=== PATIENT | female | born 1980 | race Caucasian/White ===

== ENCOUNTER → 2018-03-15 14:48 | Outpatient (CLI) | payer BC, SELFPAY ==
[2018-03-20 09:19] LABS: HPV Reflexed? NOT INDICATED
== END ==
PROVIDERS: Visit Provider Obstetrics & Gynecology
DX: Z12.4 Encounter for screening for malignant neoplasm of cervix (principal)
CPT/HCPCS: 88175; G0145

== ENCOUNTER 2020-10-22 11:21 | Emergency (ER) | payer OTHER, SELFPAY ==
[2020-10-22 11:23] VITALS: BP 163/93; PULSE 103; RESP 15; TEMP 36.2; O2SAT 100; BMI 35.4
[2020-10-22 11:35] LABS: Bedside Glucose 96 mg/dL (70-110)
--- NOTE | 2020-10-22 11:47 | EKG12_ITS ---
Test Reason : NEURO S/SX Blood Pressure : / mmHG Vent. Rate : 086 BPM Atrial Rate : 086 BPM P-R Int : 176 ms QRS Dur : 102 ms QT Int : 362 ms P-R-T Axes : 045 -11 026 degrees QTc Int : 433 ms Normal sinus rhythm Poor R wave progression Confirmed by SE LY, RODERICK ([id number]), editor department KLARISSA PATEL ([id number]) on 10/26/2020 10:56:55 AM Referred By: JANENE/ATIYA Confirmed By:RODERICK SAEZ MD
--- NOTE | 2020-10-22 11:47 | CT_ITS ---
STUDY: CTA HEAD AND NECK WITH CONTRAST REASON FOR EXAM: Female, 40 years old. Dizziness, left facial droop RADIATION DOSAGE (If Supplied By Facility): CTDIvol = ( 25.83 ) mGy, DLP = ( 1516.01 ) mGycm TECHNIQUE: CT angiography was performed with a multi-detector CT scanner. Data acquisition was obtained from the skull base through the vertex following intravenous administration of IV 100mL Isovue-370. MIP images were reconstructed from the axial data set. Post-processing of the angiographic images was performed, with multiplanar reformation and 3D reconstruction. Individualized dose optimization techniques were used for this CT. COMPARISON: No relevant priors. FINDINGS: Normal bilateral petrous carotid arteries. Normal right cavernous carotid artery with a normal supraclinoid bifurcation. Normal left cavernous carotid artery with a normal supraclinoid bifurcation. Normal right A1 segments of the anterior cerebral artery. Normal left A1 segments of the anterior cerebral artery. Normal intact anterior communicating artery (ACOM). Normal bilateral A2 segments of the anterior cerebral arteries. Normal right M1 and M2 segments of the middle cerebral arteries, with a normal M1 bifurcation. Normal left M1 and M2 segments of the middle cerebral arteries, with a normal M1 bifurcation. Normal right posterior communicating artery (PCOM). Normal left posterior communicating artery (PCOM). Normal bilateral vertebral arteries. Normal basilar artery with a normal basilar bifurcation. The visualized bilateral superior cerebellar (SCA) arteries are normal. Normal bilateral P1, P2 and visualized P3 segments of the posterior cerebral arteries. There is no demonstrated aneurysm of the [place] of [place]. There is no demonstrated abnormality of the visualized brain. Prominence of the cisterna magna. This is a normal variant. 34.1 mm hypodense nodule in the anterior aspect of the lower pole of the right lobe of the thyroid. AORTIC ARCH: Normal visualized aortic arch. Normal origins of the brachiocephalic, left common carotid, and left subclavian arteries. RIGHT CAROTID ARTERIES: Normal right common carotid artery (CCA). Normal right common carotid bulb. Normal origin of the right internal carotid (ICA) artery without a hemodynamically significant stenosis. Normal visualized cervical portion of the right internal carotid artery. Normal origin of the right external carotid artery (ECA). LEFT CAROTID ARTERIES: Normal left common carotid artery (CCA). Normal left common carotid bulb. Normal origin of the left internal carotid (ICA) artery without a hemodynamically significant stenosis. Normal visualized cervical portion of the left internal carotid artery. Normal origin of the left external carotid artery (ECA). VERTEBRAL ARTERIES: There is enhancement within the bilateral vertebral arteries with a small right vertebral artery, and a dominant left vertebral artery. CT/CTA Head AND Neck W/ Contrast IMPRESSION: Normal CTA Head and neck with contrast. Electronically Signed: Garrett Diaz MD at 12:59 EDT , Service support ,
--- NOTE | 2020-10-22 11:48 | EDS_ITS ---
HPI History of Present Illness Chief Complaint: Neuro S/Sx Detail of Chief Complaint: Dizziness and left facial droop Informant: patient Narrative Narrative: Patient states that she started having some dizzy spells about a year ago and has had intermittent symptoms especially with getting out of the car or standing up quickly. Often times she will hear a whooshing sound in her ears and feel like she is in a pass out. She has not actually had a syncopal episode. Patient 2 months ago started having intermittent spells where she will feel a pulling to the left side of her face and it look like her face is drooping and then she will have some numbness to the left side of her mouth associated with it. Intermittently she seen some floaters from the right side of her eye. Patient denies headaches or history of migraines. She denies chest pain or shortness of breath. She denies recent illness. Patient was at primary care physician's office today and she was noted to have a left-sided facial droop while in the department and so was referred to the emergency department for further work-up and evaluation. Prior similar symptoms: Yes PFSH PFSH Home Medications NK 10/22/20 [History Last Taken Unknown] Allergy/AdvReac Type Severity Reaction Status Date / Time Sulfa (Sulfonamide AdvReac Hives Verified 06/04/15 14:44 Antibiotics) Surgical History (Updated 10/22/20 @ 11:24 by Sherry Arellano) History of cholecystectomy Social History Smoking Status: Never smoker [facility] ED Constitutional Constitutional ED: Reports systems reviewed and no addt'l complaints, except as documented; Denies body ache(s), change in weight or chills Eyes Eyes: Reports other Details: Intermittently has floaters in the right eye. ; Denies acute decrease in peripheral vision, change in vision, double vision or loss of vision ENT ENT ED: Reports none and other Details: Intermittent transient left-sided facial droop ; Denies ear pain, lip swelling, loss taste/smell, neck pain, otalgia or sore throat Cardiovascular Cardiovascular: Reports none; Denies abdominal pain, chest pain with activity, leg edema, lightheadedness, palpitations, rapid heart rate or syncope Respiratory/Chest Respiratory/Chest: Reports none; Denies change in mental status, dry cough, dyspnea, hemoptysis, shortness of breath at rest or shortness of breath with exertion Gastrointestinal Gastrointestinal: Reports none; Denies abdominal pain, change in stool character, diarrhea, hematemesis, hematochezia, melena, rectal bleeding or vomiting Genitourinary Genitourinary ED: Reports none; Denies abdominal discomfort, anuria, dysuria, genital pain or polyuria Musculoskeletal Musculoskeletal: Reports none; Denies arthralgias, back pain, difficulty walking, extremity pain, muscle weakness or myalgias Integumentary Reports none; Denies abscess or rash Neurologic Neurologic: Reports none; Denies abnormal gait, confusion, focal weakness, frequent falls, headache(s), loss of vision, numbness, paresthesias, radicular pain, vertigo or weakness Psychiatric Psychiatric: Reports systems reviewed and no addt'l complaints, except as documented and none; Denies behavioral changes, confusion, difficulty concentrating, hallucinations, suicidal ideation, tactile hallucinations or visual hallucinations Endocrine Endocrinology: Denies none, cold intolerance, excessive sweating, fatigue or heat intolerance Hematologic/Lymphatic Hematologic/Lymphatic: Reports none; Denies anemia, easy bleeding or easy br uising Allergic/Immunologic Allergic/Immunologic ED: Denies as per HPI, none, lip swelling, mouth swelling, throat swelling, tongue swelling or hives EXAM Physical Exam Const Vital Signs: 10/22/20 11:23 10/22/20 13:02 10/22/20 13:30 Temperature 97.2 F L Temperature Source Temporal Pulse Rate 103 H 72 Pulse Rate [Lying] 67 Pulse Rate [Sitting] 100 Pulse Rate [Standing] 93 Respiratory Rate 15 16 Blood Pressure 163/93 H Blood Pressure [Lying] 124/81 H Blood Pressure [Sitting] 147/90 H Blood Pressure [Standing] 140/83 H Blood Pressure Mean 116 Blood Pressure Mean [Lying] 95 Blood Pressure Mean [Sitting] 109 Blood Pressure Mean [Standing] 102 Pulse Ox 100 100 Oxygen Delivery Method Room Air Room Air Positive well nourished and well developed General Appearance ED: well developed and NAD HEENT Reports TM's clear and moist mucous membranes normocephalic and atraumatic; Negative for trauma or tenderness Tympanic Membrane ED: Yes TM's clear Eyes PERRL and EOMs intact bilaterally General Eye ED: Negative for pale conjunctiva or scleral icterus Neck no lymphadenopathy, supple and no JVD General: Negative for tenderness Chest Wall inspection of chest normal and palpation of chest normal Chest: Negative for tenderness Resp normal respiratory effort and clear to auscultation bilaterally Effort and Inspection: Negative for respiratory distress or pain with movement Auscultation: Negative for rhonchi, wheezes or diminished lung sounds Cardio regular rate, regular rhythm, S1 normal heart sound, S2 normal heart sound and no murmurs Peripheral Pulses: pulses 2+ throughout GI normal to inspection, nondistended, normoactive bowel sounds, soft to palpation, non-tender, non-distended and no masses Back/Spine no CVA tenderness and no thoracic nor lumbar tenderness Extremity normal to inspection General Extremety ED: Negative for edema General Extremity: Negative for edema Neuro oriented x3, CN's II-XII intact bilaterally, no sensory deficits noted and gait normal Neuro Narrative: No facial droop noted currently. Finger-nose and heel felix testing within normal limits, negative Romberg, negative for drift, fundi be nign. Sensorium / Orientation: awake, alert, oriented to person, oriented to place and oriented to time Motor Exam: strength 5/5 throughout and strength abnormal Psych mental status grossly normal Skin no rashes or lesions noted and no wounds MDM MDM MDM Narrative Medical decision making narrative: Discussed results with patient. At this point etiology of her symptoms is unclear. The focal left-sided facial droop associated with position changes. I feel she will need further evaluation as an outpatient including MRI of her brain and possible cardiology follow-up as chery winston. Her orthostatic vital signs were unremarkable here. I discussed results also with patient's primary care physician who is in agreement. I will refer patient to local neurology for follow-up. At this point I do not feel patient is having a stroke. It is possible she may be having atypical migraine phenomenon. Lab Data Attestation: I reviewed the patient's lab results. Labs: Laboratory Results - last 24 hr 10/22/20 10/22/20 10/22/20 11:30 11:30 11:32 WBC 10.0 RBC 5.19 Hgb 14.8 Hct 45.2 MCV 87.1 MCH 28.5 MCHC 32.7 RDW Std Deviation 40.1 RDW Coeff of Krupa 12.8 Plt Count 349 MPV 10.1 Immature Gran % (Auto) 0.300 Neut % (Auto) 59.0 Lymph % (Auto) 32.4 Catron % (Auto) 5.6 Eos % (Auto) 2.2 Baso % (Auto) 0.5 Absolute Neuts (auto) 5.9 Absolute Lymphs (auto) 3.25 Nucleated RBC % 0 Sodium 139 Potassium 3.7 Chloride 107 Carbon Dioxide 25.0 Anion Gap 7 BUN 18 Creatinine 1.04 H Estim Creat Clear Calc 72.54 Est GFR (MDRD) Af Amer 75 Est GFR (MDRD) Non-Af 62 BUN/Creatinine Ratio 17.3 Glucose 100 Calcium 9.1 Troponin I < 0.015 POC Glucose 96 Radiography Diagnostic Testing: Radiology Impression Head/Neck CTA 10/22/20 11:47 IMPRESSION: Normal CTA Head and neck with contrast. Electronically Signed: Garrett Diaz MD at 12:59 EDT , Service support , Discharge Plan Triage Chief Complaint: Neuro S/Sx ED Provider: Amado Humphreys Dx/Rx/DC Orders Clinical Impression: Dizziness of unknown etiology, Facial droop Instructions: ED Dizziness, Uncertain Cause Prescriptions: No Action NK RF: 0 Primary Care Provider: Palmira Shultz Referrals: Palmira Shultz DO [Primary Care Provider] - Lam Campos MD [STAFF PHYSICIAN] - 3-5 Days Activity Restrictions/Additional Instructions: Follow-up with Dr. Lam Garcia Disposition Disposition: Home, self care
[2020-10-22] MEDS: 0.9% Normal Saline 1,000 ML 1000 ML IV (12:13)
[2020-10-22 12:15] LABS: Absolute Lymphocyte Count 3.25 X10^3/uL (0.83-4.51); Absolute Neutrophil Count 5.9 X10^3/uL (2.0-7.7); Basophil# 0.05 X10^3/uL; Basophil% 0.5 % (0-1); Eosinophil# 0.22 X10^3/uL; Eosinophils% 2.2 % (0-5); Hematocrit 45.2 % (37-47); Hemoglobin 14.8 g/dL (12.0-15.0); Lymphocyte # 3.25 X10^3/ul (0.83-4.51); Lymphocyte % 32.4 % (19-41); Mean Corp Hgb Conc 32.7 g/dL (32-36); Mean Corpuscular Hgb 28.5 pg (27.0-32.0); Mean Corpuscular Volume 87.1 fL (81-99); Mean Platelet Vol. 10.1 fl (6.2-12.0); Monocyte# 0.56 X10^3/uL; Monocyte% 5.6 % (0-10); NRBC Flagged by Analyzer 0 % (0-5); Neutrophil # 5.91 X10^3/uL (2.7-7.7); Platelet Count 349 K/mm3 (150-450); RBC Distribution Width CV 12.8 % (11.6-14.6); RBC Distribution Width SD 40.1 fl (35.1-43.9); Red Blood Count 5.19 M/mm3 (4.2-5.4)
[2020-10-22 12:28] LABS: Anion Gap 7 (5-15); BUN 18 mg/dL (7-18); BUN/Creat Ratio 17.3 RATIO (10-20); Calcium,Total 9.1 mg/dL (8.5-10.1); Chloride 107 mmol/L (98-107); Creatinine, Serum 1.04 mg/dL (0.55-1.02); EST Glomerular Filtration Rate 62 mL/min (>60); Est Glom Filt Rate - Afr Amer 75 mL/min (>60); Estimated Creatinine Clearance 72.54 ml/min; Glucose 100 mg/dL (74-106); Potassium 3.7 mmol/L (3.5-5.1); Sodium Level 139 mmol/L (136-145)
[2020-10-22 13:02] VITALS: PULSE 72; RESP 16; O2SAT 100
[2020-10-22 13:30] VITALS: BP 124/81; BP 140/83; BP 147/90; PULSE 100; PULSE 67; PULSE 93
[2020-10-22 13:58] VITALS: BP 140/83; PULSE 74; RESP 16; O2SAT 99
== END 2020-10-22 14:07 | disposition home or self-care (01) ==
PROVIDERS: Emergency Provider Emergency Medicine; PCP Internal Medicine
DX: R42 Dizziness and giddiness (principal); R29.810 Facial weakness
CPT/HCPCS: 70496; 70498; 80048; 82962; 84484; 85025; 93005; 96360; 96361; 99284; J7030; Q9967; A4216

== ENCOUNTER → 2020-12-24 10:39 | Outpatient (CLI) | payer OTHER, SELFPAY ==
[2020-12-20 08:47] VITALS: BMI 34.5
--- NOTE | 2020-12-24 10:53 | MRI_ITS ---
STUDY: MRI BRAIN WITHOUT CONTRAST REASON FOR EXAM: Female, 40 years old. FACIAL PARASTHESIS, dizziness upon standing TECHNIQUE: Standardized multiplanar fat and water weighted pulse sequences were obtained. COMPARISON: None. FINDINGS: Normal size of the ventricles and extra-axial spaces for the patient''s age. Normal white matter tracts of the supratentorial brain. There is no evidence for recent intracranial ischemia or other cause of cytotoxic edema on diffusion weighted imaging (DWI). Normal T2* images of the brain without demonstrated susceptibility artifact. There is no demonstrated hemosiderin stain. Normal bilateral basal ganglia. Normal thalami. There is no extra-axial fluid accumulation. Normal flow voids within the major intracranial circulation suggesting patency by spin echo criteria. Normal sella turcica, pituitary gland, infundibular stalk, optic chiasm and hypothalamus. Normal tectal plate and pineal gland. Normal midbrain, will and medulla. 12 mm of cerebellar tonsillar ectopia consistent with a Chiari I malformation. No platybasia, cervicomedullary kinking, or syrinx. Normal basal cisterns. Normal bilateral temporal bones. Normal bilateral internal auditory canals. No demonstrated orbital abnormality, within the constraints of a routine brain study. Some mucosal thickening of the floor the maxillary sinuses consistent with chronic sinusitis. Normal calvarium and skull base. Normal visualized soft tissue structures. Normal visualized upper cervical spine. MRI/Brain without Contrast IMPRESSION: Chiari I malformation. Electronically Signed: Leonardo Agrawal MD at 17:23 EDT Tel , Service support ,
[2020-12-24 11:00] LABS: T4 Free Direct 0.83 ng/dL (0.76-1.46); Thyroid Stim Hormone (TSH) 1.17 uIU/mL (0.358-3.74)
--- NOTE | 2020-12-24 11:54 | US_ITS ---
STUDY: THYROID ULTRASOUND REASON FOR EXAM: Female, 40 years old. Thyroid nodule TECHNIQUE: Ultrasound evaluation of the thyroid was performed with real-time and static perez-scale imaging. COMPARISON: CT 10/22/2020 FINDINGS: RIGHT LOBE: The right lobe of the thyroid gland measures 5.3 x 1.9 x 2.5 cm. There is a homogeneous echotexture. Nodule 1:6 x 6 x 6 mm cystic anechoic wider than tall smoothly marginated nodule with no echogenic foci (TR 1) in the inferior right lobe consistent with a colloid cyst corresponding to the nodule seen on CT. LEFT LOBE: The left lobe of the thyroid gland measures 4.7 x 1.8 x 1.6 cm. There is a homogeneous echotexture. Nodule 2:4 x 2 x 3 mm cystic anechoic wider than tall smoothly marginated nodule with no echogenic foci (TR 1) in the lateral left lobe consistent with a colloid cyst. ISTHMUS: The isthmus measures 4 mm thick. . The regional lymph nodes are normal. US/Thyroid IMPRESSION: Normal ultrasound examination of the thyroid. 6 mm colloid cyst in the inferior right lobe corresponding to the nodule seen on CT. Electronically Signed: Leonardo Agrawal MD at 17:51 EDT Tel , Service support ,
== END ==
PROVIDERS: Psychiatry & Neurology Neurology; PCP Internal Medicine; Referring Provider Internal Medicine; Visit Provider Internal Medicine
DX: R20.2 Paresthesia of skin (principal); E04.1 Nontoxic single thyroid nodule
CPT/HCPCS: 36415; 70551; 76536; 84439; 84443

== ENCOUNTER → 2021-04-22 09:48 | Outpatient (CLI) | payer OTHER, SELFPAY ==
--- NOTE | 2021-04-22 09:50 | BI_ITS ---
MAMMOGRAPHY - BILATERAL SCREENING REASON FOR EXAM: Female, 41 years old. Routine annual screening examination. PERTINENT HISTORY: Non-contributory. TECHNIQUE: Digital bilateral breast rodrigo (3D mammographic acquisition) in the CC and MLO projections. 2-D mediolateral oblique (MLO) and craniocaudad (CC) views of both breasts were obtained. CAD: Full Field Digital Mammography with Computer Added Detection was performed. COMPARISON: None. Baseline examination. FINDINGS: Breast Composition: The breasts are heterogeneously dense, which may obscure small masses. There are no dominant masses or suspicious calcifications. Benign-appearing mild axillary lymph nodes. No other significant abnormalities are identified. BI/SCRN MAMM (CAD)W/RODRIGO BILAT IMPRESSION: Negative screening mammogram. Yearly followup mammogram recommended. (A) ASSESSMENT CATEGORY: BIRADS Category 2: Benign. A letter regarding these results will be sent to the patient by the facility within 30 days. Approximately 10% of breast cancers are not detected by mammography. A normal mammogram should not delay biopsy of a clinically suspicious abnormality. [id number] Electronically Signed: Garrett Diaz MD at 10:52 EDT , Service support ,
== END ==
PROVIDERS: PCP Internal Medicine; Referring Provider Student in an Organized Health Care Education/Training Program; Visit Provider Student in an Organized Health Care Education/Training Program
DX: Z12.31 Encounter for screening mammogram for malignant neoplasm of breast (principal)
CPT/HCPCS: 77063; 77067

== ENCOUNTER 2021-05-02 12:48 | Outpatient (CLI) | payer OTHER, SELFPAY ==
[2021-05-02 13:05] VITALS: BP 148/96; PULSE 84; RESP 16; TEMP 36.8; O2SAT 100; BMI 32.5
[2021-05-02] MEDS: 0.9% Saline Lock 10 ML Syringe IV (13:15)
[2021-05-02 14:10] VITALS: BP 121/84; PULSE 71; RESP 16; TEMP 36.4; O2SAT 100
[2021-05-02 15:06] VITALS: BP 126/78; PULSE 70; RESP 16; TEMP 36.6; O2SAT 100
== END 2021-05-02 15:13 | disposition home or self-care (01) ==
LOC: MS3OUT 12:48 → MS3 12:49
PROVIDERS: PCP Internal Medicine; Visit Provider Nurse Practitioner Adult Health
DX: U07.1 COVID-19 (principal)
CPT/HCPCS: J7050; M0245; Q0245; A4216

== ENCOUNTER → 2021-10-28 | Outpatient (CLI) | payer OTHER, SELFPAY ==
--- NOTE | 2021-10-28 11:02 | MRI_ITS ---
EXAM: MR HEAD WITHOUT AND WITH INTRAVENOUS CONTRAST CLINICAL INDICATION: Bilateral papilledema. Follow-up CHIARI I malformation. TECHNIQUE: Multiplanar and multisequence MR images of the brain were obtained without and with intravenous contrast. This report was created using [employer] technology. CONTRAST: IV 17ml Dotarem COMPARISON: MRI brain without contrast 12/24/2020. FINDINGS: BRAIN AND EXTRA-AXIAL SPACES: Midline herniation of the inferior cerebellar tonsils CHIARI I anomaly causing foramen magnum stenosis. No focal signal abnormalities throughout the brain parenchyma in all of the pulse sequences. Normal ventricles and cisterns. No abnormal enhancing lesions intraaxially and extra-axially. No abnormal contrast enhancement of the optic nerves, optic nerve sheaths, optic chiasm, optic tracts and the rest of the intracranial pathway. Small round magnetic susceptibility focus near the surface of the lateral aspect of the inferior semilunar lobule of the left cerebellar hemisphere has central T2 hyperintensity. 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 No intra- or extra-axial hemorrhage. No evidence of acute infarct. There is preservation of the perez/white matter interface. No hydrocephalus. SELLA: Unremarkable. Normal sella turcica, pituitary gland, infundibular stalk, optic chiasm and hypothalamus. AUDITORY SYSTEM: Unremarkable. The internal auditory canals are patent. BONES/JOINTS: No associated syrinx of the included cervical spinal cord from C1 down to C5. No discrete lytic or blastic abnormalities. SINUSES: Unremarkable as visualized. Clear. MASTOID AIR CELLS: Unremarkable as visualized. Clear. ORBITS: No abnormal contrast enhancement of the orbital globes. VASCULATURE: Unremarkable as visualized. Normal flow voids in the major intracranial circulation. MRI/Brain W/WO Contrast IMPRESSION: 1. Normal MRI scan of the orbits, optic nerves, optic nerve sheaths, optic chiasm, optic tracts and the rest of the intracranial pathway. 2. 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 This is unchanged. 3. CHIARI I anomaly with peglike configuration of the midline cerebellar tonsillar herniation causing foramen magnum stenosis. This is unchanged. 4. No abnormal enhancing lesions intraaxially and extra-axially. 5. No significant interval change when compared to 12/24/2020. Electronically Signed: Ti Goodwin MD at 13:06 EDT ,
== END | disposition home or self-care (01) ==
LOC: MRI 11:02
PROVIDERS: PCP Internal Medicine; Visit Provider Nurse Practitioner Family
DX: H47.10 Unspecified papilledema (principal); G93.5 Compression of brain; G51.32 Clonic hemifacial spasm, left
CPT/HCPCS: 70553; A9575

== ENCOUNTER 2022-02-21 14:02 | Outpatient (CLI) | payer OTHER, SELFPAY ==
[2022-03-02 16:29] LABS: HPV APTIMA, High Risk Negative (Negative)
== END 2022-02-21 23:59 | disposition home or self-care (01) ==
LOC: LABSPEC 14:18
PROVIDERS: PCP Internal Medicine; Visit Provider Student in an Organized Health Care Education/Training Program
DX: Z01.419 Encounter for gynecological examination (general) (routine) without abnormal findings (principal)
CPT/HCPCS: 87624; 88175; G0145

== ENCOUNTER → 2022-05-19 | Outpatient (CLI) | payer OTHER, SELFPAY ==
--- NOTE | 2022-05-19 | CYSPIN_PTH ---
PATIENT: NICK HERNANDEZ LOC: [facility] U#:[id number] AGE/SX: 42/F ROOM: RE05/19/[address]: CARYN Hernandez : 1980 BED: DIS: 05/19/2022 SPEC #: [id number] RECD: 05/19/22 13:23 STATUS: UVALDO REMaryanne #: [id number] NICOLETTE: 05/19/22 00:[address]: Isatu Martinez NP DEPT: CYTOLOGY RECD BY: Denzel Reza ENTERED: 05/19/22 13:23 SP TYPE: CYSPIN FL OTHR DR: Dr. Palmira Shultz DO Tissues: Cerebrospinal Fluid Procedures: Pap Stain (control) Special Stain Group II Cytospin Fluid Comments: @ Specimen number changed from [id number] to [id number] @ on 05/19/22 at 1327 by SHEILA. HEADER OPERATION: Lumbar puncture PRE-OP DIAGNOSIS: Papilledema, concern for increased intracranial pressure TISSUE SUBMITTED: Cerebrospinal fluid for cytology DIAGNOSIS CYTOLOGY Cerebrospinal fluid for cytology (cytospin): Negative for malignant cells. See comment. ADELA:marychuy 05/22/2022 COMMENT The specimen is bloody. Clinical correlation and appropriate follow up are necessary. CYTOLOGY STUDY Slides are reviewed. CYTOLOGY GROSS Received is 1 ml of light pink cloudy fluid labeled with the patient's name and and designated per the requisition as CSF. Submitted for cytology preparation. / [email or web address] 05/19/2022 TC:5 CPT: 29763
--- NOTE | 2022-05-19 09:34 | RAD_ITS ---
PROCEDURE: Fluoroscopic guided Lumbar Puncture. INDICATION: Female, 42 years old. Unspecified papilledema. Concern for increased intracranial pressure. PHYSICIAN: Praful Padilla D.O. MEDICATIONS: 1% lidocaine administered subcutaneously for local anesthesia. ACCESS SITE: Lower posterior back. NEEDLE: 22-gauge spinal needle. SPECIMEN: Approximately 12 mL of CSF fluid. FLUOROSCOPY TIME (if supplied): 12 seconds. COMPLICATIONS: None immediate. TECHNIQUE: The risks, benefits, and alternatives to the procedure were explained to the patient. The specific risks of bleeding, infection, and neurovascular injury were detailed and accepted. Witnessed informed consent was obtained. The patient was placed on the fluoroscopic table in the prone position. The level for needle entry was determined and marked. The overlying skin was cleaned and prepped in the usual sterile fashion. Approximately 5 cc of 1% lidocaine was administered subcutaneously for local anesthesia. Under fluoroscopic guidance a 22-gauge spinal needle was advanced. The thecal sac was entered at the L4-L5 vertebral level. The inner stylet was removed. There was spontaneous flow of clear CSF fluid. Opening pressure was obtained measuring 12 cm H2O. The patient was placed in a reversed Trendelenburg position. Approximately 12 mL of cerebrospinal fluid was collected using gravity. The specimen was collected and submitted to the laboratory for further evaluation. The needle was withdrawn. Hemostasis was achieved and a sterile dressing placed. The patient tolerated the procedure well without any immediate complications. The patient was returned to the floor in stable condition. RAD/Dx Lumbar Puncture w/IMG Guide IMPRESSION: Successful fluoroscopic-guided lumbar puncture with opening pressure of 12 cm H2O. Laboratory results are pending. Electronically Signed: Praful Padilla, at 13:03 EST ,
[2022-05-19 09:43] VITALS: BP 147/75; PULSE 92; RESP 16; TEMP 36.6; O2SAT 99; BMI 32.5
[2022-05-19] MEDS: Lidocaine 2% (5ml sdv) 5 ML VIAL.MPF INFILT (10:30)
[2022-05-19 10:49] VITALS: BP 135/81; PULSE 69; RESP 16; O2SAT 98
[2022-05-19 11:00] VITALS: BP 127/80; PULSE 69; RESP 16; O2SAT 97
[2022-05-19 11:15] VITALS: BP 128/81; PULSE 76; RESP 14; O2SAT 98
[2022-05-19 11:15] LABS: Cytology, Body Fluid / CSF SEE PATHOLOGY REPORT
[2022-05-19 11:30] VITALS: BP 126/79; PULSE 78; RESP 14; O2SAT 98
[2022-05-19 11:45] VITALS: BP 144/92; PULSE 91; RESP 16; O2SAT 99
[2022-05-19 12:08] LABS: Glucose Spinal Fluid 56 mg/dL (40-75)
[2022-05-19 13:38] LABS: Auto B Fluid Analyzer BKGD Ct COUNTS W/IN LIMITS (W/IN LIMITS); Tested Tube # 4
[2022-05-19 13:39] LABS: Appearance CSF (character) CLEAR (Clear); CSF Color COLORLESS (Colorless); Lymphocytes,CSF 1 % (40 - 80); RBC Count, Spinal Fluid 105 /mm-3 (None seen); White Count, CSF 3 /mm-3 (0 - 5)
[2022-05-19 13:40] LABS: Body Fluid QC Type(s) BF1Q; Neutrophils,CSF 1 % (0 - 6)
[2022-05-22 12:54] LABS: Pathologist Review Reviewed
== END | disposition home or self-care (01) ==
PROVIDERS: PCP Internal Medicine; Referring Provider Nurse Practitioner Family; Visit Provider Nurse Practitioner Family
DX: H47.10 Unspecified papilledema (principal)
CPT/HCPCS: 62328; 82040; 82042; 82784; 82945; 84157; 87070; 87205; 88108; 88313; 89050; 89051

== ENCOUNTER → 2022-05-25 | Outpatient (CLI) | payer OTHER, SELFPAY ==
--- NOTE | 2022-05-25 08:29 | BI_ITS ---
MAMMOGRAPHY - BILATERAL SCREENING REASON FOR EXAM: Female, 42 years old. Routine annual screening examination. PERTINENT HISTORY: Non-contributory. TECHNIQUE: Digital bilateral breast rodrigo (3D mammographic acquisition) in the CC and MLO projections. 2-D mediolateral oblique (MLO) and craniocaudad (CC) views of both breasts were obtained. CAD: Full Field Digital Mammography with Computer Added Detection was performed. COMPARISON: Comparison is made with prior study dated 04/22/2021. FINDINGS: Breast Composition: The breasts are heterogeneously dense, which may obscure small masses. There are no dominant masses or suspicious calcifications. Stable small benign-appearing bilateral axillary lymph nodes. No other significant abnormalities are identified. There has been no significant change since the prior study. BI/SCRN MAMM (CAD)W/RODRIGO BILAT IMPRESSION: Stable bilateral screening mammogram. Yearly follow-up mammogram recommended. (A) ASSESSMENT CATEGORY: BIRADS Category 2: Benign. A letter regarding these results will be sent to the patient by the facility within 30 days. Approximately 10% of breast cancers are not detected by mammography. A normal mammogram should not delay biopsy of a clinically suspicious abnormality. [id number] Electronically Signed: Garrett Diaz MD at 10:36 EST ,
== END | disposition home or self-care (01) ==
PROVIDERS: PCP Internal Medicine; Visit Provider Student in an Organized Health Care Education/Training Program
DX: Z12.31 Encounter for screening mammogram for malignant neoplasm of breast (principal)
CPT/HCPCS: 77063; 77067

== ENCOUNTER → 2022-12-15 | Outpatient (CLI) | payer OTHER, SELFPAY ==
[2022-12-15 17:42] LABS: Mucous, Urine 0 SEEN /hpf (<or=2+)
[2022-12-15 17:55] LABS: Color, Urine Yellow (Yellow); Glucose, Dipstick Normal (Normal); Ketone-Dipstick Negative (Negative); Leukocyte Esterase-Dipstick 100 /ul (Negative); Nitrite-Dipstick Negative (Negative); Occult Blood-Urine 250 /ul (Negative); Protein-Dipstick 30 mg/dl (Negative); Specific Gravity, Urine 1.025 (1.002-1.030); Urine Bilirubin Dipstick Negative (Negative); Urine Clarity Sl. Cloudy (Clear); Urine Urobilinogen Normal (Normal)
[2022-12-15 18:24] LABS: White Blood Cells 10-25 SEEN /hpf (0-5)
[2022-12-15 18:25] LABS: Bacteria 1+ /hpf (None Seen); Red Blood Cells-Urine 50-100 SEEN /hpf (0-5); Squamous Epithelial Cells - UA 0-5 SEEN /hpf (5-10)
== END | disposition home or self-care (01) ==
PROVIDERS: PCP Internal Medicine; Visit Provider Physician Assistant
DX: R30.0 Dysuria (principal)
CPT/HCPCS: 81001; 87086; 87088; 87186